=== PATIENT | female | born 1945 | race Caucasian/White ===

== ENCOUNTER 2019-11-27 17:11 | Emergency (ER) | payer MEDICARE, OTHER ==
--- NOTE | 2019-11-27 18:01 | ER Document Report ---
ED Medical Screen (RME) - General Chief Complaint: Abnormal Lab Results Stated Complaint: ABNORMAL LABS Time Seen by Provider: 11/27/19 17:59 Primary Care Provider: CANDACE OVIEDO MD [Primary Care Provider] - Follow up as needed Mode of Arrival: Ambulatory Information source: Patient Notes: 74-year-old female presented to ED for abnormal labs. She states she was sc heduled for CT of the and oral contrast and when they went to do her labs her labs were often due to kidney function and she was not able to get the IV portion. She then at the imaging center had another lab drawn before the CT and then her doctor called her and told her she needed to to ED for a abnormal potassium level. We will repeat the Potassium level in the emergency room and treat the level appropriately. Said she had been fasting for thyroid levels and then for the CT and it had a lot of diarrhea. I have greeted and performed a rapid initial assessment of this patient. A comprehensive ED assessment and evaluation of the patient, analysis of test results and completion of medical decision making process will be conducted by an additional ED providers. TRAVEL OUTSIDE OF THE [place] IN LAST 30 DAYS: No - Related Data Allergies/Adverse Reactions: niacin [Niacin] Adverse Reaction (Verified 11/27/19 17:54) Past Medical History - Past Medical History Cardiac Medical History: Reports: Hx Hypertension - MEDICATED Denies: Hx Heart Attack Pulmonary Medical History: Denies: Hx Asthma Neurological Medical History: Denies: Hx Cerebrovascular Accident, Hx Seizures GI Medical History: Denies: Hx Hepatitis, Hx Hiatal Hernia, Hx Ulcer Infectious Medical History: Denies: Hx Hepatitis Past Surgical History: Reports: Hx Hysterectomy - PARTIAL. Denies: Hx Mastectomy, Hx Open Heart Surgery, Hx Pacemaker Physical Exam - Vital signs Vitals: Temp Pulse Resp BP Pulse Ox 97.7 F 94 18 147/73 H 98 11/27/19 17:20 11/27/19 17:20 11/27/19 17:20 11/27/19 17:20 11/27/19 17:20 Course - Vital Signs Vital signs: Temp Pulse Resp BP Pulse Ox 97.7 F 94 18 147/73 H 98 11/27/19 17:20 11/27/19 17:20 11/27/19 17:20 11/27/19 17:20 11/27/19 17:20 Doctor's Discharge - Discharge Referrals: CANDACE OVIEDO MD [Primary Care Provider] - Follow up as needed
[2019-11-27 18:53] LABS: ABSOLUTE EOSINOPHILS # (AUTO) 0.1 10^3/uL (0.0-0.6); ABSOLUTE LYMPHOCYTES (AUTO) 3.2 10^3/uL (0.5-4.7); BASOPHILS % (AUTO) 0.3 % (0-2); EOSINOPHILS % (AUTO) 0.6 % (0-6); HEMATOCRIT 41.2 % (36.0-47.0); HEMOGLOBIN 14.6 g/dL (12.0-15.5); LYMPHOCYTES % (AUTO) 31.1 % (13-45); MEAN CORPUSCULAR HEMOGLOBIN 34.8 pg (27.0-33.4); MEAN CORPUSCULAR HGB CONC 35.5 g/dL (32.0-36.0); MEAN CORPUSCULAR VOLUME 98 fl (80-97); MONOCYTES % (AUTO) 9.5 % (3-13); PLATELET COUNT 346 10^3/uL (150-450); RED BLOOD COUNT 4.21 10^6/uL (3.72-5.28); RED CELL DISTRIBUTION WIDTH 14.5 % (11.5-14.0); SEGMENTED NEUTROPHILS % (AUTO) 58.5 % (42-78); TOTAL CELLS COUNTED % (AUTO) 100 %; WHITE BLOOD COUNT 10.2 10^3/uL (4.0-10.5)
[2019-11-27 19:05] LABS: APPEARANCE,URINE CLEAR; BILIRUBIN,URINE NEGATIVE (NEGATIVE); COLOR,URINE YELLOW; GLUCOSE, URINE NEGATIVE (NEGATIVE); KETONES,URINE NEGATIVE (NEGATIVE); PROTEIN,URINE NEGATIVE (NEGATIVE); URINE SPECIFIC GRAVITY 1.008; UROBILINOGEN,URINE NEGATIVE mg/dL (<2.0)
[2019-11-27 19:10] LABS: ALBUMIN 4.3 g/dL (3.5-5.0); ALKALINE PHOSPHATASE 73 U/L (38-126); ANION GAP 14 (5-19); ASPARTATE AMINO TRANSFERASE 19 U/L (14-36); BILIRUBIN,DIRECT 0.6 mg/dL (0.0-0.4); BILIRUBIN,TOTAL 0.6 mg/dL (0.2-1.3); BLOOD UREA NITROGEN 58 mg/dL (7-20); CALCIUM 9.3 mg/dL (8.4-10.2); CARBON DIOXIDE 30 mmol/L (22-30); CHLORIDE 95 mmol/L (98-107); GLUCOSE 107 mg/dL (75-110); POTASSIUM 3.2 mmol/L (3.6-5.0); TOTAL PROTEIN 7.1 g/dL (6.3-8.2)
--- NOTE | 2019-11-27 20:53 | ER Document Report ---
ED General - General Chief Complaint: Abnormal Lab Results Stated Complaint: ABNORMAL LABS Time Seen by Provider: 11/27/19 17:59 Primary Care Provider: CANDACE OVIEDO MD [NO LOCAL MD] - Follow up as needed Mode of Arrival: Ambulatory Notes: Patient is a 74-year-old female that comes emergency department for chief complaint of abnormal labs. She states that she was supposed to be having a CAT scan of the abdomen and pelvis with oral and IV contrast, she states that she went to have her labs drawn and she drank the contrast last night, she states that she was told her kidney functioning was abnormal and they could not do the imaging, they also told her that her potassium level was abnormal and she needed to come to the emergency department per patient. Patient states that she was having intermittent right mid to lower abdominal pain and cramping, states this has been intermittent for a while, she denies current pain, she denies difficulty eating. She also states that she was recently treated starting a few days ago for gout with steroids and indomethacin, she states the gout has resolved, she states that she started getting stomach upset and occasional diarrhea over the past several days. Again she denies any current symptoms. TRAVEL OUTSIDE OF THE [place] IN LAST 30 DAYS: No - Related Data Allergies/Adverse Reactions: niacin [Niacin] Adverse Reaction (Verified 11/27/19 17:54) Home Medications: thyroid. synthroid. htn. co q 10. pravastatin. escitalopram. melatonin. triamterene. vitamin d2. potassium. fish oil Past Medical History - General Information source: Patient - Social History Smoking Status: Never Smoker Chew tobacco use (# tins/day): No Frequency of alcohol use: None Drug Abuse: None Lives with: Family Family History: Reviewed & Not Pertinent Patient has homicidal ideation: No - Past Medical History Cardiac Medical History: Reports: Hx Hypertension - MEDICATED Denies: Hx Heart Attack Pulmonary Medical History: Denies: Hx Asthma Neurological Medical History: Denies: Hx Cerebrovascular Accident, Hx Seizures GI Medical History: Denies: Hx Hepatitis, Hx Hiatal Hernia, Hx Ulcer Infectious Medical History: Denies: Hx Hepatitis Past Surgical History: Reports: Hx Hysterectomy - PARTIAL. Denies: Hx Mastectomy, Hx Open Heart Surgery, Hx Pacemaker Review of Systems - Review of Systems Constitutional: No symptoms reported EENT: No symptoms reported Cardiovascular: No symptoms reported Respiratory: No symptoms reported Gastrointestinal: See HPI Genitourinary: No symptoms reported Female Genitourinary: No symptoms reported Musculoskeletal: No symptoms reported Skin: No symptoms reported Hematologic/Lymphatic: No symptoms reported Neurological/Psychological: No symptoms reported Physical Exam - Vital signs Vitals: Temp Pulse Resp BP Pulse Ox 97.7 F 94 18 147/73 H 98 11/27/19 17:20 11/27/19 17:20 11/27/19 17:20 11/27/19 17:20 11/27/19 17:20 - Notes Notes: GENERAL: Alert, interacts well. No acute distress. HEAD: Normocephalic, atraumatic. EYES: Pupils equal, round, and reactive to light. Extraocular movements intact. ENT: Oral mucosa moist, tongue midline. Oropharynx unremarkable. Airway patent. NECK: Full range of motion. Supple. Trachea midline. No lymphadenopathy. LUNGS: Clear to auscultation bilaterally, no wheezes, rales, or rhonchi. No respiratory distress. Non-tender chest wall. HEART: Regular rate and rhythm. No murmur ABDOMEN: Soft, non-tender. Non-distended. EXTREMITIES: Moves all 4 extremities spontaneously. No edema, normal radial and dorsalis pedis pulses bilaterally. No cyanosis. BACK: no cervical, thoracic, lumbar midline tenderness. No saddle anesthesia, normal distal neurovascular exam. Moves all extremities in full range of motion. NEUROLOGICAL: Alert and oriented x3. Normal speech. Cranial nerves II through XII grossly intact. Strength 5/5 in all extremities. PSYCH: Normal affect, normal mood. SKIN: Warm, dry, normal turgor. No rashes or lesions noted. Course - Re-evaluation Re-evalutation: Patient is talkative, well-appearing, sitting on a chair, reading. She has no current complaints. She is very youthful in appearance. Her exam including her abdominal exam is very benign. Her vital signs are unremarkable. CBC unremarkable. Chemistry shows slightly low potassium at 3.2, creatinine is elevated although I have no comparison. Patient is urinating without difficulty reportedly. She has been on indomethacin, she will be stopped from taking this to avoid worsening renal function. I offered checking her magnesium and IV fluids, however patient declined. She requested copy of her labs and discharge. She states she has close follow-up, no current symptoms, and she is ready to go. I feel this is appropriate, I discussed recommendations, close follow-up, provided with a copy of her labs, discussed return precautions. Patient states understanding and agreement. - Vital Signs Vital signs: Temp Pulse Resp BP Pulse Ox 97.7 F 65 18 134/67 H 100 11/27/19 21:12 11/27/19 21:12 11/27/19 21:12 11/27/19 21:12 11/27/19 21:12 - Laboratory Result Diagrams: 11/27/19 18:18 11/27/19 18:18 Laboratory results interpreted by me: 11/27/19 11/27/19 18:18 18:18 MCV 98 H MCH 34.8 H RDW 14.5 H Potassium 3.2 L Chloride 95 L BUN 58 H Creatinine 2.44 H Est GFR ( Amer) 23 L Est GFR (MDRD) Non-Af 19 L Direct Bilirubin 0.6 H Discharge - Discharge Clinical Impression: Renal insufficiency, Hypokalemia Condition: Stable Disposition: HOME, SELF-CARE Additional Instructions: Your potassium is only slightly low today. Resume your normal potassium supplements, have this rechecked with primary care. Please stop the indomethacin, this is very irritating to your kidneys, your kidney functioning is abnormally elevated today, drink plenty of fluids, please have this rechecked in a few days with your primary care provider as well as we discussed. See your provided laboratory numbers. Return for any concerning symptoms including severe abdominal pain, inability to urinate, palpitations, passing out, or any other concerning or worsening symptoms. Referrals: CANDACE OVIEDO MD [NO LOCAL MD] - Follow up as needed
[2019-11-27 21:13] VITALS: BP 134/67
== END 2019-11-27 21:13 | disposition home or self-care (01) ==
LOC: ER 17:11
DX: E87.6 Hypokalemia (principal); N28.9 Disorder of kidney and ureter, unspecified; R10.30 Lower abdominal pain, unspecified; R19.7 Diarrhea, unspecified; I10 Essential (primary) hypertension; Z79.899 Other long term (current) drug therapy
CPT/HCPCS: 36415; 80053; 81001; 85025; 99283